=== PATIENT | male | born 1940 | race Caucasian/White ===

== ENCOUNTER 2017-11-26 07:23 | Emergency (ER) | payer MEDICARE, OTHER, SELFPAY ==
[2017-11-26 07:29] VITALS: BP 102/68; PULSE 61; RESP 14; TEMP 36.5; O2SAT 99; BMI 31.9
--- NOTE | 2017-11-26 07:31 | ED_ITS ---
HPI - Back Pain/Injury General Chief Complaint: Back Pain/Injury Stated Complaint: BACK PAIN Time Seen by Provider: 11/26/17 07:28 Source: patient Mode of arrival: ambulatory Limitations: no limitations History of Present Illness HPI Narrative: Patient is a 77-year-old male here for evaluation of mid to lower back pain. Patient states that it started approximately 3 days ago when he moved ?something I shouldn't have ?. Patient has had this pain in the past. He does have oxycodone at home and has been taking it. He states he does not like to take it because it makes him drowsy. Pain has not worsened over the past 3 days but just has not gotten any better. He states that he feels like he is urinating more often. He is unsure if he is emptying his bladder but does not know whether not this is new over the past 3 days. Did have a bowel movement this morning which she states was somewhat hard for him to do. No saddle anesthesia. No fevers. Does not have any radiation down to either leg. No fevers. No changes in skin. Patient did state that he has had this exact same pain in the past only it is worse this time. Related Data Home Medications Medication Instructions Recorded Confirmed acetaminophen [Acetaminophen Extra 1,000 mg PO Q6H PRN 11/26/17 11/26/17 Strength] allopurinol 300 mg PO DAILY PRN 11/26/17 11/26/17 aspirin 81 mg PO DAILY 11/26/17 11/26/17 atorvastatin 40 mg PO DAILY 11/26/17 11/26/17 carvedilol 12.5 mg PO BID 11/26/17 11/26/17 cholecalciferol (vitamin D3) 2,000 unit PO DAILY 11/26/17 11/26/17 [Vitamin D3] furosemide 40 mg PO DAILY PRN 11/26/17 11/26/17 hydrocortisone 1 applic TOPICAL BID-QID PRN 11/26/17 11/26/17 indomethacin 50 mg PO DAILY PRN 11/26/17 11/26/17 losartan 25 mg PO DAILY 11/26/17 11/26/17 magnesium chloride 64 mg PO DAILY 11/26/17 11/26/17 metformin 500 mg PO BID 11/26/17 11/26/17 oxycodone-acetaminophen 1 tab PO Q4-6H PRN 11/26/17 11/26/17 primidone 500 mg PO Q12H 11/26/17 11/26/17 ropinirole 1 mg PO BEDTIME 11/26/17 11/26/17 sertraline 50 mg PO BEDTIME 11/26/17 11/26/17 spironolactone 12.5 mg PO DAILY 11/26/17 11/26/17 Previous Rx's Medication Instructions Recorded lidocaine [Lidoderm] 1 patch TOP DAILY #1 each 11/26/17 Allergies Allergy/AdvReac Type Severity Reaction Status Date / Time No Known Drug Allergies Allergy Verified 11/26/17 07:35 Review of Systems Constitutional Denies fatigue, Denies fever(s) and Denies headache(s) ENT Ears, Nose, Mouth, and Throat: Denies vertigo and Denies headache(s) Cardiovascular Denies chest pain and Denies dyspnea Respiratory Denies dyspnea Gastrointestinal Gastrointestinal: Denies abdominal pain, Reports constipation (One hard stool this morning), Denies diarrhea, Denies nausea and Denies vomiting Genitourinary Denies difficulty urinating, Denies genital pain, Denies dysuria, Denies flank pain, Reports urinary frequency and Denies urinary urgency Musculoskeletal Reports back pain, Denies myalgias, Denies arthralgias, Denies muscle cramps, Denies radiating pain into limb and Denies tingling Integumentary/Breasts Denies lesions, Denies rash and Denies wounds Neurologic Denies vertigo, Denies headache(s) and Denies tingling Endocrine Denies fatigue Hematologic/Lymphatic Denies easy bleeding and Denies easy bruising [facility] Medical History Depression (Acute) Gout (Acute) High blood pressure (Acute) Surgical History H/O aortic valve replacement (Acute ~03/2013) H/O heart artery stent (Acute ~03/01/11) History of ankle joint replacement (Acute ~2014) Social History Smoking Status: Never smoker Comment: Reviewed patient's past medical surgical family and social history. Exam Initial Vital Signs Initial Vital Signs: Vital Signs Temperature 97.7 F 11/26/17 07:29 Pulse Rate 61 11/26/17 07:29 Respiratory Rate 14 11/26/17 07:29 Blood Pressure 102/68 11/26/17 07:29 Pulse Oximetry 99 11/26/17 07:29 Const General: cooperative, healthy appearing, comfortable and No acute distress Orientation: alert, awake and oriented x3 HENMT Head: normal to inspection and normocephalic Resp Effort & Inspection: normal respiratory effort Auscultation: clear to auscultation bilaterally Cardio Rate: regular rate Rhythm: regular rhythm Heart Sounds: murmur systolic III/ GI Inspection: non-distended Palpation: soft, No firm and No tender Back/Spine/Pelvis Thoracic/Lumbar Spine: No paraspinal tenderness, No thoraco-lumbar spasm and lumbar spinal tenderness Skin Lesions: no lesions Rashes: no rashes Neuro General: alert, awake and oriented x3 Gait: normal gait Motor: muscle tone normal throughout Sensory Exam: no sensory deficits noted Extrem General: normal to inspection and capillary refill normal Psych Appearance: grossly normal and well kempt Affect: sad Course Orders Ordered: ED Orders 11/26/17 07:46 US retroperitoneal limited Stat Vital Signs - 8 hr 11/26/17 07:29 11/26/17 10:17 Temperature 97.7 F Pulse Rate 61 57 L Respiratory Rate 14 18 Blood Pressure 102/68 Blood Pressure [Left Arm] 102/69 Pulse Oximetry 99 97 MDM - Back Pain/Injury Imaging Data CT scan - abdomen: Radiologist's impression: PROCEDURE: US RETRO PERITONEAL LIMITED INDICATIONS: Lower abdominal plain would like AAA US TECHNIQUE: Real time scanning was performed of the aorta and iliac arteries, with image documentation. COMPARISON: None. FINDINGS: Aorta: Proximal aortic diameter measures 2.1 cm. Mid-aorta measures 1.9 cm. Distal aortic diameter is 1.7 cm. Iliac arteries: Right common iliac artery measures 1.1 cm. Left common iliac artery measures 1.1 cm. IMPRESSION: No evidence of abdominal aortic aneurysm. Dictated by: Yanet Aponte MD, PhD on 11/26/2017 at 9:58 Approved by: Yanet Aponte MD, PhD on 11/26/2017 at 9:58 [facility] Narrative Medical decision making narrative: Patient urinated here in the emergency department and had no urine left in his bladder with a post-void residual bladder scan. Urine is unremarkable. Aortic ultrasound shows no signs of aneurysm. Patient's physical exam is not consistent with cauda equina. He has had this exact same back pain in the past. He does have pain medication at home. He also has ibuprofen at home. We did discuss return precautions. We will hold on further workup for now. Patient does not have a history that is consistent with a fracture so will hold on radiologic study. Also sent home with a prescription for lidocaine patches. P patient expressed understanding and agreement with plan Discharge Plan Departure Patient Disposition: Home, Self-Care Clinical Impression: Lumbago Instructions: Back Pain (Alternative Therapy), DI for Low Back Pain, Activity May Be Better then Rest for Low Back Pain Recovery Activity Restrictions/Additional Instructions: Recommend that you take a anti-inflammatories such as Motrin, ibuprofen, Naprosyn, Aleve as needed. You can use the lidocaine patches as directed. Call your primary care doctor for a follow-up. Recommend you stay as active as possible. Return to the emergency department for any new or worsening symptoms Prescriptions: New lidocaine [Lidoderm] 5 % adhesive patch,medicated 1 patch TOP DAILY Qty: 1 RF: 0 No Action furosemide 40 mg Tablet 40 mg PO DAILY PRN (Reason: fluid over load) RF: 0 atorvastatin 40 mg Tablet 40 mg PO DAILY RF: 0 metformin 500 mg Tablet 500 mg PO BID RF: 0 carvedilol 12.5 mg Tablet 12.5 mg PO BID RF: 0 ropinirole 1 mg Tablet 1 mg PO BEDTIME RF: 0 hydrocortisone 1 % Solution 1 applic TOPICAL BID-QID PRN (Reason: scalp ) RF: 0 acetaminophen [Acetaminophen Extra Strength] 500 mg Tablet 1,000 mg PO Q6H PRN (Reason: back and plantar pain) RF: 0 spironolactone 25 mg Tablet 12.5 mg PO DAILY RF: 0 oxycodone-acetaminophen 5-325 mg Tablet 1 tab PO Q4-6H PRN (Reason: Back Pain) RF: 0 primidone 250 mg Tablet 500 mg PO Q12H RF: 0 losartan 25 mg Tablet 25 mg PO DAILY RF: 0 indomethacin 50 mg Capsule 50 mg PO DAILY PRN (Reason: gout) RF: 0 aspirin 81 mg Tablet,Chewable 81 mg PO DAILY RF: 0 allopurinol 300 mg Tablet 300 mg PO DAILY PRN (Reason: gout) RF: 0 sertraline 50 mg Tablet 50 mg PO BEDTIME RF: 0 cholecalciferol (vitamin D3) [Vitamin D3] 2,000 unit Capsule 2,000 unit PO DAILY RF: 0 magnesium chloride 64 mg Tablet,Delayed Release (Dr/Ec) 64 mg PO DAILY RF: 0
--- NOTE | 2017-11-26 07:45 | PC.NURSE ---
states difficulty urinating is a chronic problem and has gotten worse over past few weeks. No change since back injury 3 days ago. Able to provide urine sample w/o difficulty.
--- NOTE | 2017-11-26 07:46 | DI.US.S_ITS ---
PROCEDURE: US RETRO PERITONEAL LIMITED INDICATIONS: Lower abdominal plain would like AAA US TECHNIQUE: Real time scanning was performed of the aorta and iliac arteries, with image documentation. COMPARISON: None. FINDINGS: Aorta: Proximal aortic diameter measures 2.1 cm. Mid-aorta measures 1.9 cm. Distal aortic diameter is 1.7 cm. Iliac arteries: Right common iliac artery measures 1.1 cm. Left common iliac artery measures 1.1 cm. IMPRESSION: No evidence of abdominal aortic aneurysm. Dictated by: Yanet Aponte MD, PhD on 11/26/2017 at 9:58 Approved by: Yanet Aponte MD, PhD on 11/26/2017 at 9:58
[2017-11-26 10:17] VITALS: BP 102/69; PULSE 57; RESP 18; O2SAT 97
== END 2017-11-26 10:37 | disposition home or self-care (01) ==
PROVIDERS: Emergency Provider Emergency Medicine
DX: M54.5 Low back pain (principal)
CPT/HCPCS: 51798; 76775; 81003; 99283; 99284

== ENCOUNTER 2018-01-07 10:47 | Emergency (ER) | payer MEDICARE, OTHER, SELFPAY ==
[2018-01-07 10:56] VITALS: BP 105/69; PULSE 60; RESP 14; TEMP 36.4; O2SAT 95; BMI 31.9
--- NOTE | 2018-01-07 11:06 | ED_ITS ---
HPI - Extremity Problem General Chief complaint: Extremity Problem,Nontraumatic Stated complaint: left leg pain/redness Time Seen by Provider: 01/07/18 11:02 Source: patient Mode of arrival: ambulatory Limitations: no limitations History of Present Illness HPI Narrative: Patient is a 77-year-old male who I evaluated here in the emergency department in the past for lower back pain. He states that he has been doing well with his lower back pain. He states that he has been in physical therapy. He also states that he join the gym. He states that a couple days ago he was at the gym and he was using a piece of equipment that he thought strained his left lower leg. He states that a couple days after and up to this point has had a very large bruise to the back of his left leg. He states that at 1 point it did extend below his knee but his states that the bruise has improved somewhat. They state that today they thought that his left lower extremity was more swollen and more warm than normal. He denies any chest pain or shortness of breath. No abdominal pain. Has his baseline urinary issues. Related Data Home Medications Medication Instructions Recorded Confirmed acetaminophen [Acetaminophen Extra 1,000 mg PO Q6H PRN 11/26/17 11/26/17 Strength] allopurinol 300 mg PO DAILY PRN 11/26/17 11/26/17 aspirin 81 mg PO DAILY 11/26/17 11/26/17 atorvastatin 40 mg PO DAILY 11/26/17 11/26/17 carvedilol 12.5 mg PO BID 11/26/17 11/26/17 cholecalciferol (vitamin D3) 2,000 unit PO DAILY 11/26/17 11/26/17 [Vitamin D3] furosemide 40 mg PO DAILY PRN 11/26/17 11/26/17 hydrocortisone 1 applic TOPICAL BID-QID PRN 11/26/17 11/26/17 indomethacin 50 mg PO DAILY PRN 11/26/17 11/26/17 losartan 25 mg PO DAILY 11/26/17 11/26/17 magnesium chloride 64 mg PO DAILY 11/26/17 11/26/17 metformin 500 mg PO BID 11/26/17 11/26/17 oxycodone-acetaminophen 1 tab PO Q4-6H PRN 11/26/17 11/26/17 primidone 500 mg PO Q12H 11/26/17 11/26/17 ropinirole 1 mg PO BEDTIME 11/26/17 11/26/17 sertraline 50 mg PO BEDTIME 11/26/17 11/26/17 spironolactone 12.5 mg PO DAILY 11/26/17 11/26/17 Previous Rx's Medication Instructions Recorded lidocaine [Lidoderm] 1 patch TOP DAILY #1 each 11/26/17 Allergies Allergy/AdvReac Type Severity Reaction Status Date / Time No Known Drug Allergies Allergy Verified 01/07/18 10:59 Review of Systems Constitutional Denies fatigue and Denies fever(s) Cardiovascular Denies chest pain, Reports edema (Left lower extremity), Reports leg edema, Denies palpitations and Denies dyspnea Respiratory Denies cough and Denies dyspnea Gastrointestinal Gastrointestinal: Denies change in bowel habits, Denies diarrhea, Denies nausea and Denies vomiting Genitourinary Denies dysuria Musculoskeletal Denies myalgias and Denies arthralgias Integumentary/Breasts Comments: Bruising to the back of his left leg Endocrine Denies fatigue and Denies palpitations Hematologic/Lymphatic Denies easy bleeding and Denies easy bruising [facility] Medical History Depression (Acute) Gout (Acute) High blood pressure (Acute) Surgical History H/O aortic valve replacement (Acute ~03/2013) H/O heart artery stent (Acute ~03/01/11) History of ankle joint replacement (Acute ~2014) Social History Smoking Status: Never smoker Exam Initial Vital Signs Initial Vital Signs: Vital Signs Temperature 97.6 F 01/07/18 10:56 Pulse Rate 60 01/07/18 10:56 Respiratory Rate 14 01/07/18 10:56 Blood Pressure 105/69 01/07/18 10:56 Pulse Oximetry 95 01/07/18 10:56 Const General: cooperative, healthy appearing, comfortable, well developed, well groomed and No acute distress Orientation: alert, awake and oriented x3 HENMT Head: normal to inspection and normocephalic Resp Effort & Inspection: normal respiratory effort Skin Other: Patient with ecchymosis left posterior leg extending from upper thigh to the knee. Consistent with his stated history of a ?bruise ? Neuro Other: No gross deformities. Sensation intact to light touch bilateral lower extremities. Extrem Other: Patient with swelling of the left lower extremity nonpitting compared to the right. Otherwise no gross deformities. Psych Appearance: grossly normal and well kempt Course Orders Ordered: ED Orders 01/07/18 11:15 US perip venous low extrem lt Stat Vital Signs - 8 hr 01/07/18 10:56 01/07/18 12:49 Temperature 97.6 F Pulse Rate 60 60 Respiratory Rate 14 15 Blood Pressure 105/69 Blood Pressure [Left Arm] 95/59 L Pulse Oximetry 95 96 MDM - Extremity (Nontraumatic) Imaging Data Venous US: Radiologist's impression: [address] [address] Ultrasound Report Signed Patient: Martin Huang LMR#: [id number] : 2Acct:[id number] Age/Sex: 77 / MDate of Service: 01/07/18 Loc: ED Accession Number: [id number] Procedure: US perip venous low extrem lt Ordering Provider: Mohamud Dela Cruz D.O. PROCEDURE: US PERIP VENOUS LOW EXTREM LT INDICATIONS: Left lower extremity swelling concern for DVT TECHNIQUE: Real-time imaging, as well as color and pulse Doppler interrogation, were performed of the lower extremity deep veins from the inguinal ligament to the popliteal fossa. COMPARISON: None. FINDINGS: The deep veins are normally compressible, and free of intraluminal thrombus. Color and pulse Doppler demonstrate normal phasic intraluminal flow. There is normal augmentation response to distal compression maneuver. IMPRESSION: No DVT found. Dictated by: Abilio Elliott M.D. on 01/07/2018 at 12:49 Approved by: Abilio Elliott M.D. on 01/07/2018 at 12:49 [facility] Narrative Medical decision making narrative: No evidence of DVT on his ultrasound. His physical exam was not consistent with cellulitis. He is neurovascularly intact. Physical exam is also not consistent with congestive heart failure. No other trauma noted. Does have a fairly significant hematoma subcutaneously left posterior leg which could be the source of the swelling in his left lower extremity. Will hold on further workup for now. Patient was given return precautions. We did discuss things such as compression stockings and elevation. Patient and expressed understanding and agreement with plan. Discharge Plan Departure Patient Disposition: Home Clinical Impression: Hematoma, Lower extremity edema Instructions: Edema (Alternative Therapy), DI for Peripheral Edema, Unilateral Activity Restrictions/Additional Instructions: Keep your leg elevated like we discussed. Use the compression stockings like we discussed. Return to the emergency department for any new or worsening symptoms Prescriptions: No Action furosemide 40 mg Tablet 40 mg PO DAILY PRN (Reason: fluid over load) RF: 0 atorvastatin 40 mg Tablet 40 mg PO DAILY RF: 0 metformin 500 mg Tablet 500 mg PO BID RF: 0 carvedilol 12.5 mg Tablet 12.5 mg PO BID RF: 0 ropinirole 1 mg Tablet 1 mg PO BEDTIME RF: 0 hydrocortisone 1 % Solution 1 applic TOPICAL BID-QID PRN (Reason: scalp ) RF: 0 acetaminophen [Acetaminophen Extra Strength] 500 mg Tablet 1,000 mg PO Q6H PRN (Reason: back and plantar pain) RF: 0 spironolactone 25 mg Tablet 12.5 mg PO DAILY RF: 0 oxycodone-acetaminophen 5-325 mg Tablet 1 tab PO Q4-6H PRN (Reason: Back Pain) RF: 0 primidone 250 mg Tablet 500 mg PO Q12H RF: 0 losartan 25 mg Tablet 25 mg PO DAILY RF: 0 indomethacin 50 mg Capsule 50 mg PO DAILY PRN (Reason: gout) RF: 0 aspirin 81 mg Tablet,Chewable 81 mg PO DAILY RF: 0 allopurinol 300 mg Tablet 300 mg PO DAILY PRN (Reason: gout) RF: 0 sertraline 50 mg Tablet 50 mg PO BEDTIME RF: 0 cholecalciferol (vitamin D3) [Vitamin D3] 2,000 unit Capsule 2,000 unit PO DAILY RF: 0 magnesium chloride 64 mg Tablet,Delayed Release (Dr/Ec) 64 mg PO DAILY RF: 0 lidocaine [Lidoderm] 5 % adhesive patch,medicated 1 patch TOP DAILY Qty: 1 RF: 0
--- NOTE | 2018-01-07 11:15 | DI.US.S_ITS ---
PROCEDURE: US PERIPH VENOUS LOW EXTREM LT INDICATIONS: Left lower extremity swelling concern for DVT TECHNIQUE: Real-time imaging, as well as color and pulse Doppler interrogation, were performed of the lower extremity deep veins from the inguinal ligament to the popliteal fossa. COMPARISON: None. FINDINGS: The deep veins are normally compressible, and free of intraluminal thrombus. Color and pulse Doppler demonstrate normal phasic intraluminal flow. There is normal augmentation response to distal compression maneuver. IMPRESSION: No DVT found. Dictated by: Abilio Elliott M.D. on 01/07/2018 at 12:49 Approved by: Abilio Elliott M.D. on 01/07/2018 at 12:49
[2018-01-07 12:49] VITALS: BP 95/59; PULSE 60; RESP 15; O2SAT 96
[2018-01-07 13:31] VITALS: BP 99/62; PULSE 57; RESP 15; TEMP 36.6; O2SAT 96
== END 2018-01-07 13:32 | disposition home or self-care (01) ==
PROVIDERS: Emergency Provider Emergency Medicine
DX: S80.12XA Contusion of left lower leg, initial encounter (principal); R60.0 Localized edema; Y93.B1 Activity, exercise machines primarily for muscle strengthening
CPT/HCPCS: 93971; 99282; 99284

== ENCOUNTER → 2018-10-15 11:37 | Outpatient (CLI) | payer MEDICARE, OTHER, SELFPAY ==
--- NOTE | 2018-10-15 | DI.CT.S_ITS ---
PROCEDURE: CT LUMBAR SPINE WO CON INDICATIONS: Spondylosis without myelopathy or radiculopathy TECHNIQUE: Noncontrast 3 mm thick sections acquired from the T12 level to the sacrum. Sagittal and coronal reformats were constructed. For radiation dose reduction, the following was used: automated exposure control. COMPARISON: [facility], CR, XR LUMBAR SPINE WITH OLBIQUES PLUS FLEXION EXTENSION, 12/12/2017, 7:46. FINDINGS: Image quality: Excellent. Bones: There is trace L1-L2 and L3-L4 retrolisthesis. There is trace L4-L5 anterolisthesis. No acute vertebral body compression fractures. No suspicious lytic or blastic bony lesions. Central spinal caliber is of normal overall caliber. No pars defects. T12-L1: Loss of disc height. Anterior endplate osteophytosis. Mild, diffuse disc bulge. No central stenosis. No neural foraminal narrowing. No neural impingement. L1-L2: Loss of disc height. Anterior endplate osteophytosis. Mild, diffuse disc bulge. Mild bilateral facet hypertrophy. Mild narrowing of the central canal. Mild bilateral neural foraminal narrowing. No neural impingement. L2-L3: Loss of disc height. Vacuum disc phenomenon. Circumferential endplate osteophytosis. Mild bilateral facet hypertrophy. Mild ligamentum flavum hypertrophy. Severe narrowing of the central canal. Severe bilateral neural foraminal narrowing with compression of the exiting L2 nerve roots. L3-L4: Loss of disc height. Vacuum disc phenomenon. Circumferential endplate osteophytosis. Mild to moderate facet hypertrophy. Moderate ligamentum flavum hypertrophy. Severe narrowing of the central canal. Severe right and moderate left neural foraminal narrowing with compression of the exiting right L3 nerve root. L4-L5: Loss of disc height. Vacuum disc phenomenon. Circumferential endplate osteophytosis. Mild right and moderate left facet hypertrophy. Moderate narrowing of the central canal. Severe bilateral neural foraminal narrowing with compression of the exiting L4 nerve roots. L5-S1: Disc height is normal. Mild, diffuse disc bulge. Mild right moderate left facet hypertrophy. Moderate right and severe left neural foraminal narrowing with compression of the exiting left L5 nerve root. Soft tissues: No retroperitoneal masses or hematomas. Visualized aorta is normal in caliber. Scattered atherosclerotic calcifications involving the abdominal and pelvic vasculature. Gallstones noted in the visualized gallbladder. Scattered diverticuli noted the visualized colon without evidence of diverticulitis. Partially visualized left pleural effusion. IMPRESSION: 1. Multilevel degenerative disc disease. 2. Multilevel facet arthropathy. 3. Severe L2-L3 and L3-L4 central canal narrowing. Moderate L4-L5 central canal narrowing. Mild L1-L2 central canal narrowing. 4. Severe bilateral L2-L3 at L4-L5 neural foraminal narrowing. Severe right and moderate left L3-L4 neural foraminal narrowing. Moderate right and severe left L5-S1 neural foraminal narrowing. Mild bilateral L1-L2 neural foraminal narrowing. 5. Compression of the exiting bilateral L2 nerve roots, the exiting right L3 nerve root, the exiting bilateral L4 nerve roots and the exiting left L5 nerve root secondary to neural foraminal narrowing. Please correlate with clinical data. 6. Cholelithiasis. Dictated by: Yanet Aponte MD, PhD on 10/15/2018 at 14:56 Approved by: Yanet Aponte MD, PhD on 10/15/2018 at 15:03
== END ==
PROVIDERS: Visit Provider Physical Medicine & Rehabilitation
DX: M47.816 Spondylosis without myelopathy or radiculopathy, lumbar region (principal); M47.817 Spondylosis without myelopathy or radiculopathy, lumbosacral region; M51.36 Other intervertebral disc degeneration, lumbar region; M51.37 Other intervertebral disc degeneration, lumbosacral region; M48.061 Spinal stenosis, lumbar region without neurogenic claudication; M48.07 Spinal stenosis, lumbosacral region; K80.20 Calculus of gallbladder without cholecystitis without obstruction
CPT/HCPCS: 72131

== ENCOUNTER 2019-02-21 13:55 | Day surgery (SDC) | payer MEDICARE, OTHER, SELFPAY ==
[2019-02-18 08:45] VITALS: BMI 29.2
[2019-02-21 14:21] VITALS: BP 101/65; PULSE 70; RESP 20; TEMP 35.9; O2SAT 99; BMI 29.2
[2019-02-21] MEDS: LACTATED RINGERS 1,000 ML 42 ML IV (14:49)
--- NOTE | 2019-02-21 16:04 | PM.PREOP ---
Pre-operative Note Interval Note History & Physical reviewed/Exam performed by Physician: Yes Changes to H&P: No
== END 2019-02-21 14:49 | disposition home or self-care (01) ==
LOC: OR 13:57
PROVIDERS: PCP Internal Medicine; Visit Provider Orthopaedic Surgery
PROC: (CPT 64721; principal; 2019-02-21 16:15)
PROC: (CPT 64721; 2019-02-21 16:15)
DX: G56.03 Carpal tunnel syndrome, bilateral upper limbs (principal); G56.20 Lesion of ulnar nerve, unspecified upper limb; Z53.8 Procedure and treatment not carried out for other reasons
CPT/HCPCS: 64721; J1100

== ENCOUNTER 2019-09-03 09:14 | Emergency (ER) | payer MEDICARE, OTHER, SELFPAY ==
[2019-09-03] VITALS (22 sets, daily range): BP systolic 84–110; BP diastolic 49–59; PULSE 74–80; RESP 13–23; TEMP 36.3–37.6; O2SAT 94–99
--- NOTE | 2019-09-03 09:42 | DI.CT.S_ITS ---
PROCEDURE: CT CHEST W CON INDICATIONS: Right sided chest pain/dyspnea TECHNIQUE: After the administration of intravenous contrast, 5 mm thick sections acquired from the pulmonary apices to the posterior costophrenic angles. 1 mm axial lung, 5 mm thick coronal and sagittal reformats and 7 mm axial MIP were acquired. For radiation dose reduction, the following was used: automated exposure control, adjustment of mA and/or kV according to patient size. COMPARISON: None. FINDINGS: Image quality: Excellent. Lungs and pleura: There was an 11.2 cm AP x 11.3 transverse fluid collection within the left lower lobe. Areas of rim enhancement are identified. Mediastinum: Heart size is mildly enlarged. Anterior right pericardial fluid is present measuring 6.8 cm AP by 2.4 cm transverse. No mediastinal or hilar adenopathy by size criteria. Thoracic aorta and central pulmonary arteries are normal in size. Esophagus is normal in caliber. Moderate hiatal hernia. Bones and chest wall: No suspicious bony lesions. No vertebral body compression fractures. No axillary or supraclavicular adenopathy by size criteria. Thyroid gland is unremarkable. Abdomen: Liver appears nodular. Visualized upper abdominal solid organs appear normal. Upper abdominal bowel loops are normal in caliber. IMPRESSION: 1. Circumscribed fluid collection with rim enhancement in the right lower lobe as above. Overall appearance is concerning for abscess/empyema. In addition, adjacent pericardial fluid is also noted. Dictated by: Barbara Yates M.D. on 09/03/2019 at 10:52 Approved by: Barbara Yates M.D. on 09/03/2019 at 11:11
--- NOTE | 2019-09-03 09:44 | ED.GENADULT ---
HPI - General Adult General Chief complaint: Upper Respiratory Symptoms Stated complaint: Pneumonia, chest/rib pain Time Seen by Provider: 09/03/19 09:17 Source: patient and family () Mode of arrival: Ambulatory History of Present Illness HPI narrative: Patient here for right-sided pain, denies any trauma or injury. Worse with movement. At times short of breath. Has had dry cough for the past 6 weeks. Treated for pneumonia by family physician at that time. Patient recently had coronavirus testing as well and it was negative. Recent open heart surgery June 2019, [facility] for valve replacement. Nonmetallic. However still is on blood thinners. Denies any left-sided chest pain. Did have follow-up after surgery for pleurocentesis by thoracic surgeon in [place] after his surgery. On the right side. In the past 5 days has had right-sided chest pain. Blood pressure noted. Denies any fever or chills Location: chest and right Radiation: non-radiation Severity: moderate Severity scale (1-10): 4 Pain Consistency: constant Relieving factors: rest Exacerbating factors: movement Related Data Home Medications Medication Instructions Recorded Confirmed acetaminophen [Acetaminophen Extra 1,000 mg PO Q6H PRN 11/26/17 07/03/19 Strength] aspirin 81 mg PO DAILY 11/26/17 07/03/19 atorvastatin 40 mg PO DAILY 11/26/17 07/03/19 magnesium chloride 64 mg PO DAILY 11/26/17 07/03/19 oxycodone-acetaminophen 1 tab PO Q4-6H PRN 11/26/17 07/03/19 spironolactone 12.5 mg PO DAILY 11/26/17 07/03/19 cholecalciferol (vitamin D3) 50 4,000 unit PO DAILY cap 12/24/18 07/03/19 mcg (2,000 unit) capsule diclofenac sodium 1 % topical gel 100 gram TOP QID PRN gram 12/24/18 07/03/19 escitalopram oxalate 10 mg tablet 10 mg PO DAILY 12/24/18 07/03/19 loratadine 10 mg tablet 10 mg PO DAILY PRN 12/24/18 07/03/19 potassium chloride 10 mEq 10 meq PO DAILY 12/24/18 07/03/19 capsule,extended release primidone 250 mg tablet 250 mg PO Q12H tab 12/24/18 07/03/19 duloxetine 20 mg PO BID 02/21/19 07/03/19 indomethacin 50 mg PO DAILY PRN 02/21/19 07/03/19 Allergies Allergy/AdvReac Type Severity Reaction Status Date / Time No Known Drug Allergies Allergy Verified 12/24/18 14:22 Review of Systems Review of Systems Narrative: GENERAL: Denies chills, fatigue, malaise, fever, sweats. HEENT: Denies sinus pain, ear pain, sore throat, difficulty swallowing, dizziness. RESPIRATORY: Denies wheezing hemoptysis or productive cough. Has dry cough CARDIOVASCULAR: Denies chest pain, palpitations, orthopnea, edema, GASTROINTESTINAL: Denies nausea, vomiting, abdominal pain, diarrhea, constipation, melena. : Denies dysuria, frequency, incontinence, hematuria, urinary retention. MUSCULOSKELETAL: denies weakness, joint pain, or bony pain SKIN: Denies rash, skin lesions, or other NEUROLOGIC: Denies weakness, headache, numbness, change in speech, confusion, seizures, incoordination. PSYCHIATRIC: No concerning psychosocial issues. ROS Unobtainable: All systems reviewed & are unremarkable except as noted in HPI and below Patient History Medical History Atrial septal defect (Acute) CAD (coronary artery disease) (Acute) Cardiomyopathy (Acute) Cellulitis (Acute) CHF (congestive heart failure) (Acute) Congenital heart disease (Acute) Depression (Acute) Dizziness (Acute) DJD (degenerative joint disease) (Acute) Excessive daytime sleepiness (Chronic) Gout (Acute) High blood pressure (Acute) HLD (hyperlipidemia) (Acute) ICD (implantable cardioverter-defibrillator) in place (Acute) Insomnia (Chronic) Nonrheumatic mitral (valve) insufficiency (Acute) Obstructive sleep apnea (Chronic) Scoliosis (Acute) Thrombocytopenia (Acute) Surgical History H/O heart artery stent (Acute ~03/01/11) History of ankle joint replacement (Acute ~2014) History of atrial septal defect repair (Acute 04/16/13) History of mitral valve replacement (Acute 04/16/13) 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 Well-nourished, well-developed patient, in no distress, not toxic, in gown HEAD: Atraumatic. Normocephalic. EYES: Pupils equal round and reactive. Extraocular motions intact. No scleral icterus. No injection or drainage. ENT: Nose without bleeding, purulent drainage. Throat without erythema, tonsillar hypertrophy or exudate. Airway patent. NECK: Trachea midline. Non tender CARDIOVASCULAR: Regular rate and rhythm without murmurs, gallops, or rubs. RESPIRATORY: Diminished lung sounds right base. Speaks full sentences. Not dyspneic. GASTROINTESTINAL: Abdomen soft, non-tender, nondistended. EXTREMITIES: No edema or joint tenderness. BACK: Nontender without deformity or crepitance. No flank tenderness. NEURO: AOx3. SKIN: No rash or erythema of visible areas Initial Vital Signs Initial Vital Signs: Vital Signs Temperature 97.4 F L 09/03/19 09:22 Pulse Rate 75 09/03/19 09:22 Respiratory Rate 13 09/03/19 09:22 Blood Pressure 101/52 L 09/03/19 09:22 Pulse Oximetry 98 09/03/19 09:22 Course Course Course Narrative: No rales on auscultation of the lungs. No pitting edema of the extremities. BNP reviewed. Blood pressure noted. Will give 1 L normal saline judiciously/bolus, history of CHF. Orders Ordered: ED Orders 09/03/19 09:41 Complete Blood Count AUTO DIFF Stat Comprehensive Metabolic Panel Stat Lactate (Lactic Acid) Stat Lipase Stat NT-proBNP (BNP-Adult 18+) Stat Partial Thromboplastin Time Stat Procalcitonin Stat Prothrombin Time INR Stat Troponin & CK Cardiac Panel Stat EKG-12 Lead Stat 09/03/19 09:42 CT chest w con Stat 09/03/19 12:25 Blood Culture Stat Discontinued Medications Aspirin (Aspirin Chew) 324 mg PO NOW ONE Stop: 09/03/19 09:42 Last Admin: 09/03/19 10:03 Dose: 324 mg Documented by: MEISENB Sodium Chloride (Normal Saline 0.9%) 500 mls @ 1,000 mls/hr IV BOLUS ONE Stop: 09/03/19 10:18 Last Infusion: 09/03/19 10:41 Dose: 0 mls/hr Documented by: DAIJASENAlejandra Admin: 09/03/19 10:03 Dose: 1,000 mls/hr Documented by: DAIJASENAlejandra Vancomycin HCl (Vancomycin) 1,000 mg in 200 mls @ 200 mls/hr IV NOW ONE Stop: 09/03/19 12:27 Last Infusion: 09/03/19 12:56 Dose: 0 mls/hr Documented by: Admin: 09/03/19 11:42 Dose: 200 mls/hr Documented by: ALESIA Sodium Chloride (Normal Saline 0.9%) 500 mls @ 1,000 mls/hr IV BOLUS ONE Stop: 09/03/19 12:01 Last Admin: 09/03/19 14:49 Dose: Not Given Documented by: ALESIA Ceftriaxone Sodium/Dextrose (Rocephin) 1 gm in 50 mls @ 100 mls/hr IV NOW ONE Stop: 09/03/19 13:41 Last Infusion: 09/03/19 14:02 Dose: 0 mls/hr Documented by: DAIJASENAlejandra Admin: 09/03/19 13:32 Dose: 100 mls/hr Documented by: KRYSTAL Consultations Consultation #1: Time 11:45 a.m., general surgery at [facility] contacted, Dr. Tse, evaluated CT scan and spoke with patient, at this time appropriate for patient to go to [facility] Consultation #2: Time 12:45 p.m. spoke with [facility] calender let off operator Dr. Venegas, patient to be admitted to hospitalist. Start Rocephin IV. If need vasopressor then start norepinephrine Consultation #3: Time 1:10 p.m.. Spoke with [facility] hospitalist Dr. Cortez, admit intermediate level telemetry Vital Signs Vital signs: Vital Signs - 8 hr 09/03/19 09:22 09/03/19 09:35 09/03/19 09:49 Temperature 97.4 F L 99.7 F H Pulse Rate 75 75 75 Respiratory Rate 13 19 16 Blood Pressure 101/52 L Blood Pressure [Right Arm] 89/51 L 89/51 L Pulse Oximetry 98 94 09/03/19 10:10 09/03/19 10:15 09/03/19 10:23 Temperature Pulse Rate 75 74 75 Respiratory Rate 21 19 19 Blood Pressure Blood Pressure [Right Arm] 87/58 L 93/50 L 95/50 L Pulse Oximetry 95 94 95 09/03/19 10:25 09/03/19 10:38 09/03/19 10:56 Temperature Pulse Rate 75 80 75 Respiratory Rate 16 20 18 Blood Pressure Blood Pressure [Right Arm] 96/54 L 87/49 L 88/49 L Pulse Oximetry 95 95 95 09/03/19 11:00 09/03/19 11:21 09/03/19 11:23 Temperature Pulse Rate 75 75 75 Respiratory Rate 22 18 18 Blood Pressure Blood Pressure [Right Arm] 92/50 L 84/51 L 87/54 L Pulse Oximetry 96 99 09/03/19 11:38 09/03/19 11:56 09/03/19 12:29 Temperature Pulse Rate 75 75 75 Respiratory Rate 16 17 Blood Pressure Blood Pressure [Right Arm] 92/54 L 93/52 L 94/53 L Pulse Oximetry 96 97 09/03/19 12:45 09/03/19 13:00 09/03/19 13:15 Temperature Pulse Rate 76 76 76 Respiratory Rate 16 19 19 Blood Pressure Blood Pressure [Right Arm] 101/56 L 105/58 L 97/52 L Pulse Oximetry 97 09/03/19 13:30 09/03/19 13:45 09/03/19 15:12 Temperature Pulse Rate 74 75 75 Respiratory Rate 19 19 23 Blood Pressure Blood Pressure [Right Arm] 102/53 L 110/59 L 102/56 L Pulse Oximetry 96 96 95 09/03/19 15:25 Temperature Pulse Rate 75 Respiratory Rate 16 Blood Pressure Blood Pressure [Right Arm] 103/56 L Pulse Oximetry 97 Medical Decision Making Differential Diagnosis Differential Diagnosis: Pneumonia/CHF/pleural effusion Lab Data Result diagrams: 09/03/19 09:41 09/03/19 09:41 Labs: Lab Results 09/03/19 09/03/19 09/03/19 Range/Units 09:41 09:41 09:41 WBC 6.7 (4.5-11.0) X10^3/uL RBC 2.93 L (4.5-5.9) X10^6/uL Hgb 9.2 L (13.5-17.5) g/dL Hct 27.7 L (41-53) % MCV 94.4 (80-100) fL MCH 31.4 (26-34) PG MCHC 33.3 (30-36) % RDW 15.9 H (11.6-14.8) % Plt Count 204 (150-400) X10^3/uL Neut % (Auto) 84.8 H (50-75) % Lymph % (Auto) 7.1 L (25-40) % Summers % (Auto) 7.0 (3-14) % Eos % (Auto) 0.7 L (2-4) % Baso % (Auto) 0.4 (0-2) % Neut # (Auto) 5700 (8700-8611) /uL Lymph # (Auto) 500 L (2308-8478) /uL Summers # (Auto) 500 (0-900) /uL Eos # (Auto) 0 (0-450) /uL Baso # (Auto) 0 (0-100) /uL PT 19.5 H (10.1-12.7) SECONDS INR 1.7 H (0.9-1.3) APTT 36 (26.4-36.2) SECONDS Sodium 132 L (137-145) mmol/L Potassium 3.8 (3.4-5.1) mmol/L Chloride 91 L (98-107) mmol/L Carbon Dioxide 34 H (22-32) mmol/L BUN 13 (9-20) mg/dL Creatinine 0.60 L (0.66-1.25) mg/dL Estimated GFR > 60.0 (>60) mL/min BUN/Creatinine Ratio 21.7 (6-22) Glucose 179 H (80-110) mg/dL Lactate (0.7-2.1) mmol/L Calcium 8.5 (8.4-10.2) mg/dL Total Bilirubin 0.4 (0.2-1.3) mg/dL AST 39 (17-59) IU/L ALT 20 (<50) IU/L Alkaline Phosphatase 63 (38-126) U/L Total Creatine Kinase < 20 L (55-170) U/L CK-MB (CK-2) TNP CK-MB (CK-2) Rel Index TNP Troponin I < 0.012 (0.01-0.034) ng/mL NT-Pro-B Natriuret Pep 2370 H (<450) pg/mL Total Protein 6.8 (6.3-8.2) g/dL Albumin 3.2 L (3.5-5.0) g/dL Globulin 3.6 (1.7-4.1) g/dL Albumin/Globulin Ratio 0.9 L (1.0-2.8) Lipase 30 (23-300) U/L Procalcitonin (<0.5) ng/mL COVID-19 PCR 09/03/19 09/03/19 09/03/19 Range/Units 09:41 09:41 09:41 WBC (4.5-11.0) X10^3/uL RBC (4.5-5.9) X10^6/uL Hgb (13.5-17.5) g/dL Hct (41-53) % MCV (80-100) fL MCH (26-34) PG MCHC (30-36) % RDW (11.6-14.8) % Plt Count (150-400) X10^3/uL Neut % (Auto) (50-75) % Lymph % (Auto) (25-40) % Summers % (Auto) (3-14) % Eos % (Auto) (2-4) % Baso % (Auto) (0-2) % Neut # (Auto) (8962-4024) /uL Lymph # (Auto) (5337-0920) /uL Summers # (Auto) (0-900) /uL Eos # (Auto) (0-450) /uL Baso # (Auto) (0-100) /uL PT (10.1-12.7) SECONDS INR (0.9-1.3) APTT (26.4-36.2) SECONDS Sodium (137-145) mmol/L Potassium (3.4-5.1) mmol/L Chloride (98-107) mmol/L Carbon Dioxide (22-32) mmol/L BUN (9-20) mg/dL Creatinine (0.66-1.25) mg/dL Estimated GFR (>60) mL/min BUN/Creatinine Ratio (6-22) Glucose (80-110) mg/dL Lactate 1.3 (0.7-2.1) mmol/L Calcium (8.4-10.2) mg/dL Total Bilirubin (0.2-1.3) mg/dL AST (17-59) IU/L ALT (<50) IU/L Alkaline Phosphatase (38-126) U/L Total Creatine Kinase (55-170) U/L CK-MB (CK-2) CK-MB (CK-2) Rel Index Troponin I (0.01-0.034) ng/mL NT-Pro-B Natriuret Pep (<450) pg/mL Total Protein (6.3-8.2) g/dL Albumin (3.5-5.0) g/dL Globulin (1.7-4.1) g/dL Albumin/Globulin Ratio (1.0-2.8) Lipase (23-300) U/L Procalcitonin < 0.05 (<0.5) ng/mL COVID-19 PCR Cancelled 09/03/19 Range/Units 09:41 WBC (4.5-11.0) X10^3/uL RBC (4.5-5.9) X10^6/uL Hgb (13.5-17.5) g/dL Hct (41-53) % MCV (80-100) fL MCH (26-34) PG MCHC (30-36) % RDW (11.6-14.8) % Plt Count (150-400) X10^3/uL Neut % (Auto) (50-75) % Lymph % (Auto) (25-40) % Summers % (Auto) (3-14) % Eos % (Auto) (2-4) % Baso % (Auto) (0-2) % Neut # (Auto) (5837-3843) /uL Lymph # (Auto) (6814-6368) /uL Summers # (Auto) (0-900) /uL Eos # (Auto) (0-450) /uL Baso # (Auto) (0-100) /uL PT (10.1-12.7) SECONDS INR (0.9-1.3) APTT (26.4-36.2) SECONDS Sodium (137-145) mmol/L Potassium (3.4-5.1) mmol/L Chloride (98-107) mmol/L Carbon Dioxide (22-32) mmol/L BUN (9-20) mg/dL Creatinine (0.66-1.25) mg/dL Estimated GFR (>60) mL/min BUN/Creatinine Ratio (6-22) Glucose (80-110) mg/dL Lactate (0.7-2.1) mmol/L Calcium (8.4-10.2) mg/dL Total Bilirubin (0.2-1.3) mg/dL AST (17-59) IU/L ALT (<50) IU/L Alkaline Phosphatase (38-126) U/L Total Creatine Kinase (55-170) U/L CK-MB (CK-2) CK-MB (CK-2) Rel Index Troponin I (0.01-0.034) ng/mL NT-Pro-B Natriuret Pep (<450) pg/mL Total Protein (6.3-8.2) g/dL Albumin (3.5-5.0) g/dL Globulin (1.7-4.1) g/dL Albumin/Globulin Ratio (1.0-2.8) Lipase (23-300) U/L Procalcitonin (<0.5) ng/mL COVID-19 PCR Negative Imaging Data CT scan - chest: Radiologist's Impression: [place] [address] CT Scan Report Signed Patient: Martin Huang LMR#: [id number] : 2Acct:[id number] Age/Sex: 78 / MDate of Service: 09/03/19 Loc: ED Accession Number: [id number] Procedure: CT chest w con Ordering Provider: Tay Aaron MD PROCEDURE: CT CHEST W CON INDICATIONS: Right sided chest pain/dyspnea TECHNIQUE: After the administration of intravenous contrast, 5 mm thick sections acquired from the pulmonary apices to the posterior costophrenic angles. 1 mm axial lung, 5 mm thick coronal and sagittal reformats and 7 mm axial MIP were acquired. For radiation dose reduction, the following was used: automated exposure control, adjustment of mA and/or kV according to patient size. COMPARISON: None. FINDINGS: Image quality: Excellent. Lungs and pleura: There was an 11.2 cm AP x 11.3 transverse fluid collection within the left lower lobe. Areas of rim enhancement are identified. Mediastinum: Heart size is mildly enlarged. Anterior right pericardial fluid is present measuring 6.8 cm AP by 2.4 cm transverse. No mediastinal or hilar adenopathy by size criteria. Thoracic aorta and central pulmonary arteries are normal in size. Esophagus is normal in caliber. Moderate hiatal hernia. Bones and chest wall: No suspicious bony lesions. No vertebral body compression fractures. No axillary or supraclavicular adenopathy by size criteria. Thyroid gland is unremarkable. Abdomen: Liver appears nodular. Visualized upper abdominal solid organs appear normal. Upper abdominal bowel loops are normal in caliber. IMPRESSION: 1. Circumscribed fluid collection with rim enhancement in the right lower lobe as above. Overall appearance is concerning for abscess/empyema. In addition, adjacent pericardial fluid is also noted. Dictated by: Barbara Yates M.D. on 09/03/2019 at 10:52 Approved by: Barbara Yates M.D. on 09/03/2019 at 11:11 ECG Data Attestation: I personally reviewed and interpreted this ECG as follows: Interpretation: Time 9:27 a.m.. Ventricular rate 75, ventricular paced Discharge Plan Departure Patient Disposition: [facility] Clinical Impression: Empyema of lung Discharge Date/Time: 09/03/19 15:41 Prescriptions: No Action atorvastatin 40 mg Tablet 40 mg PO DAILY RF: 0 acetaminophen [Acetaminophen Extra Strength] 500 mg Tablet 1,000 mg PO Q6H PRN (Reason: back and plantar pain) RF: 0 spironolactone 25 mg Tablet 12.5 mg PO DAILY RF: 0 oxycodone-acetaminophen 5-325 mg Tablet 1 tab PO Q4-6H PRN (Reason: Back Pain) RF: 0 aspirin 81 mg Tablet,Chewable 81 mg PO DAILY RF: 0 magnesium chloride 64 mg Tablet,Delayed Release (Dr/Ec) 64 mg PO DAILY RF: 0 cholecalciferol (vitamin D3) [Vitamin D3] 2,000 unit capsule 4,000 unit PO DAILY RF: 0 primidone 250 mg tablet 250 mg PO Q12H RF: 0 indomethacin 50 mg Capsule 50 mg PO DAILY PRN (Reason: Gout) RF: 0 duloxetine 20 mg Capsule,Delayed Release(Dr/Ec) 20 mg PO BID RF: 0 escitalopram oxalate 10 mg tablet 10 mg PO DAILY RF: 0 loratadine [Allergy Relief (loratadine)] 10 mg tablet 10 mg PO DAILY PRN (Reason: Seasonal allergies) RF: 0 potassium chloride 10 mEq capsule, extended release 10 meq PO DAILY RF: 0 diclofenac sodium [Voltaren] 1 % gel 100 gram TOP QID PRN (Reason: Pain) RF: 0 Referrals: Anthony Pedroza MD [Primary Care Provider] -
[2019-09-03 09:52] LABS: Add Manual Diff / Slide Review NO; Basophils Absolute Auto 0 /uL (0-100); Basophils Percent Auto 0.4 % (0-2); Eosinophils Absolute Auto 0 /uL (0-450); Eosinophils Percent Auto 0.7 % (2-4); Hematocrit 27.7 % (41-53); Hemoglobin 9.2 g/dL (13.5-17.5); Lymphocytes Absolute Auto 500 /uL (1100-4500); Lymphocytes Percent Auto 7.1 % (25-40); Mean Corpuscular HGB Conc 33.3 % (30-36); Mean Corpuscular Hemoglobin 31.4 PG (26-34); Mean Corpuscular Volume 94.4 fL (80-100); Monocytes Absolute Auto 500 /uL (0-900); Neutrophils Absolute Auto 5700 /uL (1500-7000); Neutrophils Percent Auto 84.8 % (50-75); Platelet Count 204 X10^3/uL (150-400); Red Blood Cell Count 2.93 X10^6/uL (4.5-5.9); Red Cell Distribution Width 15.9 % (11.6-14.8); White Blood Cell Count 6.7 X10^3/uL (4.5-11.0)
[2019-09-03 09:59] LABS: INR 1.7 (0.9-1.3); Prothrombin Time 19.5 SECONDS (10.1-12.7)
[2019-09-03 10:02] LABS: PTT Partial Thromboplastin Tim 36 SECONDS (26.4-36.2)
[2019-09-03] MEDS: ASPIRIN 81 MG CHEW TAB 324 MG PO (10:03)
[2019-09-03] MEDS: SODIUM CHLORIDE 0.9% 500 ML 1000 ML IV (10:03)
[2019-09-03 10:04] LABS: Lactate (Lactic Acid) 1.3 mmol/L (0.7-2.1)
[2019-09-03 10:05] LABS: Alanine Aminotransferase 20 IU/L (<50); Albumin 3.2 g/dL (3.5-5.0); Albumin Globulin Ratio 0.9 (1.0-2.8); Alkaline Phosphatase 63 U/L (38-126); Aspartate Aminotransferase 39 IU/L (17-59); BUN Creatinine Ratio 21.7 (6-22); Bilirubin Total 0.4 mg/dL (0.2-1.3); Blood Urea Nitrogen 13 mg/dL (9-20); Calcium 8.5 mg/dL (8.4-10.2); Carbon Dioxide 34 mmol/L (22-32); Chloride 91 mmol/L (98-107); Creatine Kinase < 20 U/L (55-170); Estimated Glomerular Filt Rate > 60.0 mL/min (>60); Globulin 3.6 g/dL (1.7-4.1); Glucose 179 mg/dL (80-110); HEMOLYSIS < 15 (0-50); Lipase 30 U/L (23-300); Potassium 3.8 mmol/L (3.4-5.1); Sodium 132 mmol/L (137-145); Total Protein 6.8 g/dL (6.3-8.2)
[2019-09-03 10:16] LABS: NT-proBNP (BNP-Adult 18+) 2370 pg/mL (<450); Troponin I < 0.012 ng/mL (0.01-0.034)
[2019-09-03 10:32] LABS: Procalcitonin < 0.05 ng/mL (<0.5)
--- NOTE | 2019-09-03 11:21 | PC.NURSE ---
dr santamaria made aware, no new order at this time. pt reports, no pain, denies dizziness or light headedness, denies shortness of breath.
[2019-09-03] MEDS: VANCOMYCIN 1,000 MG/200 ML PIGGYBACK 200 MG IV (11:42)
[2019-09-03 13:14] LABS: COVID19 -Nasal RAPID Negative (Negative)
[2019-09-03] MEDS: CEFTRIAXONE 1 GM/50 ML FROZ.PIGGY IV (13:32)
== END 2019-09-03 15:41 | disposition short-term general hospital (02) ==
PROVIDERS: Emergency Provider Emergency Medicine; PCP Internal Medicine
DX: J86.9 Pyothorax without fistula (principal); R06.00 Dyspnea, unspecified; Z95.2 Presence of prosthetic heart valve; Z79.01 Long term (current) use of anticoagulants
CPT/HCPCS: 36415; 71260; 80053; 82550; 83605; 83690; 83880; 84145; 84484; 85025; 85610; 85730; 87040; 87635; 93005; 96361; 96365; 96367; 99285; Q9967

== ENCOUNTER → 2019-11-18 13:54 | Outpatient (CLI) | payer MEDICARE, OTHER, SELFPAY ==
[2019-11-19 19:54] LABS: COVID19 Sendout Not Detected (Not Detect)
== END ==
PROVIDERS: PCP Internal Medicine; Visit Provider Nurse Practitioner
DX: Z11.59 Encounter for screening for other viral diseases (principal)
CPT/HCPCS: 87635

== ENCOUNTER 2019-11-21 08:37 | Day surgery (SDC) | payer MEDICARE, OTHER, SELFPAY ==
[2019-11-13 10:33] VITALS: BMI 31.0
[2019-11-21] VITALS (7 sets, daily range): BP systolic 93–124; BP diastolic 50–64; PULSE 75–78; RESP 12–20; TEMP 35.9–36.9; O2SAT 97–100; BMI 28.3
[2019-11-21] MEDS: LACTATED RINGERS 1,000 ML 42 ML IV (09:27)
--- NOTE | 2019-11-21 10:44 | PM.PREOP ---
Pre-operative Note COVID-19 COVID-19 status: Negative Result date/Date tested (Pos, Neg/Pending): 11/19/19 Interval Note History & Physical reviewed/Exam performed by Physician: Yes Changes to H&P: No
[2019-11-21] MEDS: CEFAZOLIN 2 GM/100 ML FROZ.PIGGY IV (10:49)
--- NOTE | 2019-11-21 11:10 | SUR.OPER ---
Supine on padded OR bed, head on pillow, right arms secured on padded arm boards at <90 degrees abduction, left arm draped free on black arm table, legs uncrossed, safety belt at thigh, tape over blanket over lower legs.
[2019-11-21] MEDS: BUPIVACAINE 0.5% W/ EPI (PF) 30 ML VIAL INJ (11:17)
--- NOTE | 2019-11-21 11:45 | PM.OP.1 ---
Operative Date/Time/Diagnoses Date of procedure: 11/21/19 Time of procedure: 11:00 Pre-op diagnosis: Left carpal tunnel and cubital tunnel Post-op diagnosis: same Procedure & Clinicians Procedure: Left carpal tunnel and cubital tunnel release Same procedure as scheduled: Yes Indications: Left carpal tunnel and cubital tunnel Surgeon: Grover Le Bakery Worker Conveyor Line: Kya Batres Click Yes if Unassisted: No Anesthesia Type: General Operative Notes Findings: Compression of the median nerve at the carpal tunnel compression of the ulnar nerve at the cubital tunnel Closure Type: primary Specimen(s): none sent Estimated Blood Loss (mL): 0 Blood products transfused: none Tourniquet time (min): 27 Procedure in detail: On date of service, the patient was met in the holding area. Patients operative site was signed and witnessed by the OR staff. The surgery was once again discussed with the patient, and any remaining questions they had were answered fully. Patient was taken back to the operating theater and placed on the operating table in a supine position. Great care was taken to ensure that all bony prominences were carefully padded. A well-padded tourniquet was placed up along the upper extremity. A timeout was performed to verify patient's name, procedure, and operative site. The arm was then prepped and draped in the normal sterile fashion. A 15 blade was used to incise through skin In the center of the palm. Pickups and tenotomy scissors were used to dissect down until the palmar fascia was visualized. The palmar fascia was then sharply incised using a 15 blade. This gave us good visualization of the carpal ligament. A small opening was made into the carpal ligament, and a curved hemostat was placed into that opening. A 15 blade was then used to sharply incise the carpal ligament with the structures beneath being protected by the hemostat. Pickups and Metzenbaum scissors were used to complete the decompression both distally and proximally. This provided a complete decompression of the median nerve. Wound was irrigated and then closed with nylon. We then turned our attention to the cubital tunnel. Ten blade was used to make an incision centered over the cubital tunnel. Ten blade was used incise through skin and fascial tissue. Electrocautery was used to achieve hemostasis. Deep knife was used to proceed with sharp dissection. Next, Metzenbaum scissors were used to identify the nerve proximal to the cubital tunnel. This was then decompressed proximally. Next, the ulnar nerve was decompressed through the cubital tunnel by releasing the cubital tunnel. This decompression was continued distally providing a complete decompression of the nerve. Wound was irrigated and then closed in a layered fashion. The hand was then cleaned, dried, and dressed. Patient was taken to the PACU in stable condition. Complications: none Post-operative Condition: stable Disposition: PACU Plan for aftercare: Patient will follow our postoperative protocol for carpal tunnel and cubital tunnel release
--- NOTE | 2019-11-21 11:50 | SUR.PHASEI ---
Patient somnolent, but arouses OE's spontaneously. A/O x 4. Left hand cap refill < 2 seconds. Patient states normal sensation to left hand, able to move fingers. Left arm elevated with ice on it. Axilllary pulse + 2 to left arm.
== END 2019-11-21 12:20 | disposition home or self-care (01) ==
PROVIDERS: PCP Internal Medicine; Referring Provider Orthopaedic Surgery; Visit Provider Orthopaedic Surgery
PROC: (CPT 64721; principal; 2019-11-21 10:15)
PROC: (CPT 64718; 2019-11-21 10:15)
DX: G56.02 Carpal tunnel syndrome, left upper limb (principal); G56.22 Lesion of ulnar nerve, left upper limb; I25.10 Atherosclerotic heart disease of native coronary artery without angina pectoris; Z95.1 Presence of aortocoronary bypass graft; Z95.0 Presence of cardiac pacemaker
CPT/HCPCS: 64718; 64721; J0690; J2704; J3010

== ENCOUNTER → 2020-01-13 09:08 | Outpatient (CLI) | payer MEDICARE, OTHER, SELFPAY ==
[2020-01-15 10:30] LABS: COVID19 Sendout Not Detected (Not Detect)
== END ==
PROVIDERS: PCP Internal Medicine; Visit Provider Nurse Practitioner
DX: Z11.59 Encounter for screening for other viral diseases (principal)
CPT/HCPCS: 87635

== ENCOUNTER 2020-01-16 06:16 | Day surgery (SDC) | payer MEDICARE, OTHER, SELFPAY ==
[2020-01-13 15:14] VITALS: BMI 31.0
[2020-01-16] VITALS (7 sets, daily range): BP systolic 108–119; BP diastolic 64–77; PULSE 75; RESP 10–21; TEMP 36.3–36.9; O2SAT 75–97; BMI 28.0
[2020-01-16] MEDS: LACTATED RINGERS 1,000 ML 42 ML IV (07:30)
[2020-01-16] MEDS: CEFAZOLIN 2 GM/100 ML FROZ.PIGGY IV (07:45)
--- NOTE | 2020-01-16 07:46 | PM.PREOP ---
Pre-operative Note COVID-19 COVID-19 status: Negative Result date/Date tested (Pos, Neg/Pending): 01/14/20 Interval Note History & Physical reviewed/Exam performed by Physician: Yes Changes to H&P: No
--- NOTE | 2020-01-16 08:10 | SUR.OPER ---
Supine on padded OR bed, head on pillow, left arms on padded arm board at <90 degrees abduction, right arm draped free on black hand table legs uncrossed, safety belt at thigh, tape over blanket over lower legs.
[2020-01-16] MEDS: BUPIVACAINE 0.5% W/ EPI (PF) 30 ML VIAL INJ (08:18)
--- NOTE | 2020-01-16 08:56 | PM.OP.1 ---
Operative Date/Time/Diagnoses Date of procedure: 01/16/20 Time of procedure: 08:00 Pre-op diagnosis: Right carpal tunnel and cubital tunnel Post-op diagnosis: same Procedure & Clinicians Procedure: Right carpal tunnel and cubital tunnel release Same procedure as scheduled: Yes Indications: Right carpal tunnel and cubital tunnel Surgeon: Grover Le Biometrics Experimentalist: Kya Batres Anesthesia Type: General Operative Notes Findings: Compression of the median nerve at the carpal tunnel, compression of the ulnar nerve at the cubital tunnel. Closure Type: primary Specimen(s): none sent Estimated Blood Loss (mL): 0 Blood products transfused: none Tourniquet time (min): 27 Procedure in detail: On date of service, the patient was met in the holding area. Patients operative site was signed and witnessed by the OR staff. The surgery was once again discussed with the patient, and any remaining questions they had were answered fully. Patient was taken back to the operating theater and placed on the operating table in a supine position. Great care was taken to ensure that all bony prominences were carefully padded. A well-padded tourniquet was placed up along the upper extremity. A timeout was performed to verify patient's name, procedure, and operative site. The arm was then prepped and draped in the normal sterile fashion. A 15 blade was used to incise through skin In the center of the palm. Pickups and tenotomy scissors were used to dissect down until the palmar fascia was visualized. The palmar fascia was then sharply incised using a 15 blade. This gave us good visualization of the carpal ligament. A small opening was made into the carpal ligament, and a curved hemostat was placed into that opening. A 15 blade was then used to sharply incise the carpal ligament with the structures beneath being protected by the hemostat. Pickups and Metzenbaum scissors were used to complete the decompression both distally and proximally. This provided a complete decompression of the median nerve. Wound was irrigated and then closed with nylon. We then turned our attention to the cubital tunnel. Ten blade was used to make an incision centered over the cubital tunnel. Ten blade was used incise through skin and fascial tissue. Electrocautery was used to achieve hemostasis. Deep knife was used to proceed with sharp dissection. Next, Metzenbaum scissors were used to identify the nerve proximal to the cubital tunnel. This was then decompressed proximally. Next, the ulnar nerve was decompressed through the cubital tunnel by releasing the cubital tunnel. This decompression was continued distally providing a complete decompression of the nerve. Wound was irrigated and then closed in a layered fashion. The hand was then cleaned, dried, and dressed. Patient was taken to the PACU in stable condition. Complications: none Post-operative Condition: stable Disposition: PACU Plan for aftercare: Patient will follow our postoperative protocol for carpal tunnel and cubital tunnel release.
== END 2020-01-16 09:37 | disposition home or self-care (01) ==
PROVIDERS: PCP Internal Medicine; Referring Provider Internal Medicine; Visit Provider Orthopaedic Surgery
PROC: (CPT 64721; principal; 2020-01-16 07:45)
PROC: (CPT 64718; 2020-01-16 07:45)
DX: G56.01 Carpal tunnel syndrome, right upper limb (principal); G56.21 Lesion of ulnar nerve, right upper limb; G47.33 Obstructive sleep apnea (adult) (pediatric); I10 Essential (primary) hypertension; E78.5 Hyperlipidemia, unspecified; I25.2 Old myocardial infarction; Z95.1 Presence of aortocoronary bypass graft; I25.10 Atherosclerotic heart disease of native coronary artery without angina pectoris; E11.9 Type 2 diabetes mellitus without complications; Z95.0 Presence of cardiac pacemaker
CPT/HCPCS: 64718; 64721; J0330; J0690; J2704; J3010

== ENCOUNTER → 2020-09-22 18:42 | Outpatient (ROUT) | payer MEDICARE, OTHER, SELFPAY ==
[2020-09-22 19:26] LABS: Add Manual Diff / Slide Review NO; Basophils Absolute Auto 0 /uL (0-100); Basophils Percent Auto 0.4 % (0-2); Eosinophils Absolute Auto 100 /uL (0-450); Eosinophils Percent Auto 1.2 % (2-4); Hematocrit 43.8 % (41-53); Hemoglobin 14.3 g/dL (13.5-17.5); Lymphocytes Absolute Auto 800 /uL (1100-4500); Lymphocytes Percent Auto 10.4 % (25-40); Mean Corpuscular HGB Conc 32.7 % (30-36); Mean Corpuscular Volume 97.9 fL (80-100); Monocytes Absolute Auto 500 /uL (0-900); Monocytes Percent Auto 6.4 % (3-14); Neutrophils Absolute Auto 6500 /uL (1500-7000); Neutrophils Percent Auto 81.6 % (50-75); Platelet Count 87 X10^3/uL (150-400); Red Blood Cell Count 4.48 X10^6/uL (4.5-5.9); Red Cell Distribution Width 14.2 % (11.6-14.8)
[2020-09-22 19:39] LABS: Alanine Aminotransferase 50 IU/L (<50); Albumin 4.1 g/dL (3.5-5.0); Albumin Globulin Ratio 1.7 (1.0-2.8); Alkaline Phosphatase 43 U/L (38-126); Aspartate Aminotransferase 30 IU/L (17-59); Bilirubin Total 0.4 mg/dL (0.2-1.3); Blood Urea Nitrogen 31 mg/dL (9-20); Calcium 9.2 mg/dL (8.4-10.2); Carbon Dioxide 26 mmol/L (22-32); Chloride 98 mmol/L (98-107); Cholesterol 156 mg/dL (140-199); Estimated Glomerular Filt Rate > 60.0 mL/min (>60); Globulin 2.4 g/dL (1.7-4.1); Glucose 281 mg/dL (80-110); HDL Cholesterol 71 mg/dL (40-60); HEMOLYSIS 17 (0-50); LDL Cholesterol Calculated 62 mg/dL (<100); Potassium 4.7 mmol/L (3.4-5.1); Sodium 132 mmol/L (137-145); Total Protein 6.5 g/dL (6.3-8.2); Triglycerides 116 mg/dL (35-150)
[2020-09-22 19:43] LABS: NT-proBNP (BNP-Adult 18+) 992 pg/mL (<450)
[2020-09-22 19:53] LABS: Hemoglobin A1C% w Est Avg Glu 7.7 % (4.0-6.0)
[2020-09-22 20:03] LABS: TSH w/ Reflex to FT4 2.28 uIU/mL (0.47-4.68)
== END ==
PROVIDERS: PCP Internal Medicine; Visit Provider Internal Medicine
DX: E11.59 Type 2 diabetes mellitus with other circulatory complications (principal); E78.2 Mixed hyperlipidemia; I50.22 Chronic systolic (congestive) heart failure
CPT/HCPCS: 80053; 80061; 83036; 83880; 84443; 85025

== ENCOUNTER 2020-10-23 07:20 | Emergency (ER) | payer MEDICARE, OTHER, SELFPAY ==
[2020-10-23 07:28] VITALS: BP 144/66; PULSE 78; RESP 18; TEMP 36.7; O2SAT 98; BMI 29.7
--- NOTE | 2020-10-23 07:47 | ED_ITS ---
HPI - Extremity Problem General Chief complaint: Extremity Problem,Nontraumatic Stated complaint: left knee pain Time Seen by Provider: 10/23/20 07:47 Source: patient and family () Mode of arrival: Family Vehicle Limitations: no limitations History of Present Illness HPI Narrative: This is a 80-year-old male accompanied by his with complaint of left knee pain. Patient states he has had symptoms for last 2 or 3 days and has appreciated some swelling. He has pain with flexion. He states he is fine with weight-bearing and if he keeps his leg straight. He describes the pain as deeper in the joint. Although he does have some pain over the patella as well. Patient states he has not had any fevers or chills. He is not appreciate any warmth, erythema or skin changes. Patient denies any chest pain, shortness of breath or other GI or urinary symptoms. He has not had similar symptoms in his left knee but has in his right. Patient has not any prior surgeries on his knee. He does note that he was gardening quite a bit in the last week and into the days preceding his symptoms. He states he spent a lot of times on his knees and leaning over stretching and pulling at the joint. Denies any numbness, weakness, tingling that is new. Patient does take an aspirin daily. He takes multiple medications for coronary artery disease and has cardiac stents. He did try an oxycodone at home which was not very helpful as well as 2 Tylenol today with minimal improvement. Patient denies any allergies to medications. He states he has had hip replacement on the left side and the last year. He and his split their time between here in [place]. His primary care locally is Dr. Pedroza. Related Data Home Medications Medication Instructions Recorded Confirmed aspirin 81 mg PO DAILY 11/26/17 01/16/20 atorvastatin 40 mg PO DAILY 11/26/17 01/16/20 magnesium chloride 483 mg PO DAILY 11/26/17 01/16/20 cholecalciferol (vitamin D3) 50 4,000 unit PO DAILY cap 12/24/18 01/16/20 mcg (2,000 unit) capsule diclofenac sodium 1 % topical gel 100 gram TOP QID PRN gram 12/24/18 01/16/20 potassium chloride 10 mEq 10 meq PO DAILY 12/24/18 01/16/20 capsule,extended release primidone 250 mg tablet 250 mg PO Q12H tab 12/24/18 01/16/20 duloxetine 60 mg PO DAILY 02/21/19 01/16/20 acetaminophen 650 mg PO Q12H PRN 11/13/19 01/16/20 carvedilol 12.5 mg PO BID 11/13/19 01/16/20 midodrine 10 mg PO DAILY 11/13/19 01/16/20 torsemide 50 mg PO DAILY PRN 11/13/19 01/16/20 oxycodone-acetaminophen 1 tab PO PRN PRN 11/21/19 01/16/20 Previous Rx's Medication Instructions Recorded hydrocodone-acetaminophen [[place]] 2 tab PO Q4-6H PRN #30 tab 11/21/19 hydrocodone-acetaminophen [[place]] 2 tab PO Q4-6H PRN #60 tab 01/16/20 colchicine 0.6 mg PO DAILY #7 tab 10/23/20 oxycodone 5 mg PO Q6H PRN #10 tab 10/23/20 Allergies Allergy/AdvReac Type Severity Reaction Status Date / Time No Known Drug Allergies Allergy Verified 10/23/20 07:57 Review of Systems Review of Systems ROS Unobtainable: All systems reviewed & are unremarkable except as noted in HPI and below Patient History Medical History Allergic rhinitis Atrial septal defect Benign essential tremor Bilateral pleural effusion (07/04/19) BPH (benign prostatic hyperplasia) CAD (coronary artery disease) Cardiomyopathy Cellulitis CHF (congestive heart failure) Chronic edema Congenital heart disease Depression Diabetes Dizziness DJD (degenerative joint disease) Excessive daytime sleepiness Gout High blood pressure HLD (hyperlipidemia) 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) Insomnia MSSA (methicillin susceptible Staphylococcus aureus) infection (09/03/19) Nonrheumatic mitral (valve) insufficiency Obstructive sleep apnea Scoliosis Thrombocytopenia Venous insufficiency Surgical History H/O heart artery stent (03/13/10) History of ankle joint replacement (~2014) History of ankle surgery History of atrial septal defect repair (04/16/13) History of carpal tunnel surgery of left wrist (11/21/19) History of mitral valve replacement (04/16/13) 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 HEENT: Head normocephalic, atraumatic, EOMI, pupils reactive, face symmetric, moist mucous membranes NECK: Supple, full range of motion CARDIOVASCULAR: Regular rate and rhythm without murmurs, rubs or gallops. RESPIRATORY: Breath sounds equal bilaterally, no wheezes rales or rhonchi. ABDOMEN: Soft, nontender. Normoactive bowel sounds all 4 quadrants. No guarding or rebound, rigidity, no mass : No CVA tenderness EXTREMITIES: Slightly decreased flexion of the left knee. Butch wrap was removed. Patient does have an effusion, patient has tenderness particularly over the patella with palpation. Also mildly at the suprapatellar region, very mild warmth difficult to tell if this is actually from the Butch wrap., there is no erythema, there is no other skin changes appreciated besides varicose veins which are soft and nontender on the inner knee, no clubbing or edema of lower extremity. Neurovascularly intact. Patient was ambulating with a cane prior to evaluation. NEUROLOGICAL: Cranial nerves II through XII grossly intact. Moving all extremities SKIN: Warm, dry, no petechiae, no rashes or lesions. Initial Vital Signs Initial Vital Signs: Vital Signs Temperature 98.0 F 10/23/20 07:28 Pulse Rate 78 10/23/20 07:28 Respiratory Rate 18 10/23/20 07:28 Blood Pressure 144/66 H 10/23/20 07:28 Pulse Oximetry 98 10/23/20 07:28 Course Orders Ordered: Discontinued Medications Morphine Sulfate (Morphine 4 Mg/Ml Inj) 4 mg IV NOW ONE Stop: 10/23/20 07:59 Last Admin: 10/23/20 08:44 Dose: 4 mg Documented by: GIOVANNY Prednisone (Prednisone 20 Mg Tablet) 60 mg PO NOW ONE Stop: 10/23/20 09:55 Last Admin: 10/23/20 10:12 Dose: 60 mg Documented by: ANDRIA Vital Signs Vital signs: Vital Signs - 8 hr 10/23/20 07:28 Temperature 98.0 F Pulse Rate 78 Respiratory Rate 18 Blood Pressure 144/66 H Pulse Oximetry 98 MDM - Extremity (Nontraumatic) Lab Data Result diagrams: 10/23/20 08:40 10/23/20 08:40 Labs: Lab Results 10/23/20 10/23/20 Range/Units 08:40 08:40 WBC 5.8 (4.5-11.0) X10^3/uL RBC 4.35 L (4.5-5.9) X10^6/uL Hgb 14.1 (13.5-17.5) g/dL Hct 42.1 (41-53) % MCV 96.8 (80-100) fL MCH 32.5 (26-34) PG MCHC 33.5 (30-36) % RDW 14.9 H (11.6-14.8) % Plt Count 87 L (150-400) X10^3/uL Neut % (Auto) 79.9 H (50-75) % Lymph % (Auto) 10.8 L (25-40) % [place] % (Auto) 8.1 (3-14) % Eos % (Auto) 0.7 L (2-4) % Baso % (Auto) 0.5 (0-2) % Neut # (Auto) 4700 (9281-4770) /uL Lymph # (Auto) 600 L (9022-3066) /uL [place] # (Auto) 500 (0-900) /uL Eos # (Auto) 0 (0-450) /uL Baso # (Auto) 0 (0-100) /uL ESR 6 (0-15) MM/HR Sodium 135 L (137-145) mmol/L Potassium 4.0 (3.4-5.1) mmol/L Chloride 95 L (98-107) mmol/L Carbon Dioxide 33 H (22-32) mmol/L BUN 33 H (9-20) mg/dL Creatinine 0.91 (0.66-1.25) mg/dL Estimated GFR > 60.0 (>60) mL/min BUN/Creatinine Ratio 36.3 H (6-22) Glucose 250 H (80-110) mg/dL Uric Acid 10.0 H (3.5-8.5) mg/dL Calcium 9.0 (8.4-10.2) mg/dL C-Reactive Protein 0.8 (<1.0) mg/dL Imaging Data Extremity x-ray #1: Radiologist's Impression: [address] [id number] ReportSigned Patient: Martin Huang LMR#: [id number]: [id number]:[id number]/Sex: 80 / MDate of Service: 10/23/20Loc: EDAccession Number: [id number] Procedure: XR knee LT 3V Ordering Provider: Rose Mary Rubin D.O. PROCEDURE: XR KNEE LT 3V INDICATIONS: knee pain, effusion TECHNIQUE: 3 views of the knee were acquired. COMPARISON: None. FINDINGS: Bones: No fracture. Scattered degenerative subchondral sclerosis and spurring. Minimal narrowing of the medial joint space. Severe narrowing of the patellofemoral joint space. Soft tissues: No definite joint effusion. IMPRESSION: Chronic degenerative changes as above. If the patient's pain or other symptoms persist, consider further evaluation with MRI Dictated by: Clark Thomas M.D. on 10/23/2020 at 9:25 Approved by: Clark Thomas M.D. on 10/23/2020 at 9:32 MDM Narrative Medical decision making narrative: This 80-year-old male comes with complaint of left knee pain with some effusion. Patient states he was active recently in the garden this is likely cause but labs do reflect quite an elevated uric acid. Patient has had gout before in his foot in the same leg. Unclear if it is truly a gout flare verses degenerative changes and overuse. No other changes in his lab work that make me suspicious for septic joint. Patient's exam is lower likelihood. Patient was given single dose of prednisone. He has oxycodone at home. Given a prescription for colchicine. He states he has a prescription but that it is quite old. Discharge Plan Departure Patient Disposition: Home Clinical Impression: Gout, Acute knee pain Instructions: DI for Gout Activity Restrictions/Additional Instructions: Follow up with your physician for recheck. Your labs today are suspicious for gout. The swelling in your knee can also be related to recent activity, but your uric acid level is quite high today. I would recommend a course of steroids see if this improves your symptoms. You may take oxycodone up to 1 tablet every 4 hours as needed for pain. This medication can make you sleepy do not drive, perform hazardous activities or make any major decisions while taking it. This medication will make you constipated please take a stool softener once to twice daily until stools are soft and regular. Prescription sent to [facility]. Please return for fevers greater 100.4 F, rapidly worsening swelling, pain, new numbness, tingling weakness, he chest pain, shortness of breath or other new or concerning symptoms. Prescriptions: New colchicine 0.6 mg tablet 0.6 mg PO DAILY Qty: 7 RF: 0 oxycodone 5 mg tablet 5 mg PO Q6H PRN (Reason: pain) Qty: 10 RF: 0 No Action atorvastatin 40 mg Tablet 40 mg PO DAILY RF: 0 aspirin 81 mg Tablet,Chewable 81 mg PO DAILY RF: 0 magnesium chloride 64 mg Tablet,Delayed Release (Dr/Ec) 483 mg PO DAILY RF: 0 cholecalciferol (vitamin D3) [Vitamin D3] 2,000 unit capsule 4,000 unit PO DAILY RF: 0 primidone 250 mg tablet 250 mg PO Q12H RF: 0 duloxetine 20 mg Capsule,Delayed Release(Dr/Ec) 60 mg PO DAILY RF: 0 hydrocodone-acetaminophen [[place]] 5-325 mg tablet 2 tab PO Q4-6H PRN (Reason: pain) Qty: 60 RF: 0 carvedilol 12.5 mg Tablet 12.5 mg PO BID RF: 0 acetaminophen 650 mg Tablet Extended Release 650 mg PO Q12H PRN (Reason: Pain) RF: 0 torsemide 100 mg Tablet 50 mg PO DAILY PRN (Reason: Edema) RF: 0 midodrine 10 mg Tablet 10 mg PO DAILY RF: 0 oxycodone-acetaminophen 5-325 mg tablet 1 tab PO PRN PRN (Reason: Pain (Scale Score 1-3)) RF: 0 hydrocodone-acetaminophen [[place]] 5-325 mg tablet 2 tab PO Q4-6H PRN (Reason: pain) Qty: 30 RF: 0 potassium chloride 10 mEq capsule, extended release 10 meq PO DAILY RF: 0 diclofenac sodium [[place]] 1 % gel 100 gram TOP QID PRN (Reason: Pain) RF: 0 Referrals: Anthony Pedroza MD [Primary Care Provider] -
--- NOTE | 2020-10-23 07:58 | DI.RAD.S_ITS ---
PROCEDURE: XR KNEE LT 3V INDICATIONS: knee pain, effusion TECHNIQUE: 3 views of the knee were acquired. COMPARISON: None. FINDINGS: Bones: No fracture. Scattered degenerative subchondral sclerosis and spurring. Minimal narrowing of the medial joint space. Severe narrowing of the patellofemoral joint space. Soft tissues: No definite joint effusion. IMPRESSION: Chronic degenerative changes as above. If the patient's pain or other symptoms persist, consider further evaluation with MRI Dictated by: Clark Thomas M.D. on 10/23/2020 at 9:25 Approved by: Clark Thomas M.D. on 10/23/2020 at 9:32
[2020-10-23 08:44] LABS: Add Manual Diff / Slide Review NO; Basophils Absolute Auto 0 /uL (0-100); Basophils Percent Auto 0.5 % (0-2); Eosinophils Absolute Auto 0 /uL (0-450); Eosinophils Percent Auto 0.7 % (2-4); Hematocrit 42.1 % (41-53); Hemoglobin 14.1 g/dL (13.5-17.5); Lymphocytes Absolute Auto 600 /uL (1100-4500); Lymphocytes Percent Auto 10.8 % (25-40); Mean Corpuscular HGB Conc 33.5 % (30-36); Mean Corpuscular Hemoglobin 32.5 PG (26-34); Mean Corpuscular Volume 96.8 fL (80-100); Monocytes Absolute Auto 500 /uL (0-900); Monocytes Percent Auto 8.1 % (3-14); Neutrophils Absolute Auto 4700 /uL (1500-7000); Neutrophils Percent Auto 79.9 % (50-75); Platelet Count 87 X10^3/uL (150-400); Red Blood Cell Count 4.35 X10^6/uL (4.5-5.9); Red Cell Distribution Width 14.9 % (11.6-14.8); White Blood Cell Count 5.8 X10^3/uL (4.5-11.0)
[2020-10-23] MEDS: MORPHINE 4 MG/ML INJ IV (08:44)
[2020-10-23 08:59] LABS: BUN Creatinine Ratio 36.3 (6-22); Blood Urea Nitrogen 33 mg/dL (9-20); C-Reactive Protein Quant 0.8 mg/dL (<1.0); Carbon Dioxide 33 mmol/L (22-32); Chloride 95 mmol/L (98-107); Estimated Glomerular Filt Rate > 60.0 mL/min (>60); Glucose 250 mg/dL (80-110); HEMOLYSIS < 15 (0-50); Sodium 135 mmol/L (137-145)
[2020-10-23 09:02] LABS: Erythrocyte Sedimentation Rate 6 MM/HR (0-15)
[2020-10-23] MEDS: predniSONE 20 MG TABLET 60 MG PO (10:12)
[2020-10-23 10:20] VITALS: BP 140/62; PULSE 72; RESP 16; O2SAT 97
== END 2020-10-23 10:22 | disposition home or self-care (01) ==
PROVIDERS: Emergency Provider Emergency Medicine; PCP Internal Medicine
DX: M10.9 Gout, unspecified (principal); M25.562 Pain in left knee
CPT/HCPCS: 36415; 73562; 80048; 84550; 85025; 85651; 86140; 96374; 99284; J2270